=== PATIENT | female | born 1955 | race Caucasian/White ===

== ENCOUNTER 2023-03-29 18:34 | Emergency (ER) | payer MEDICARE ==
[~2023-03-29] VITALS: Ht 162.6 cm; Wt 77.1 kg
[2023-03-29 18:39] VITALS: BP 121/84; PULSE 104; RESP 16
[2023-03-29 19:14] LABS: SARS-CoV-2, RNA, NAAT POSITIVE SARS CoV-2 (NEGATIVE)
[2023-03-29 19:23] LABS: INFLUENZA TYPE A Negative For Type A (NEGATIVE); INFLUENZA TYPE B Negative For Type B (NEGATIVE)
[2023-03-29] MEDS ORDERED: ALBUHFA IH (21:10)
[2023-03-29] MEDS ORDERED: NIRM1TAB9 PO (21:10)
[2023-03-29] MEDS ORDERED: AZIT500T2 PO (21:10)
== END 2023-03-29 22:48 | disposition home or self-care (01) ==
LOC: EDH 18:34
DX: U07.1 COVID-19 (principal); R05.9 Cough, unspecified; E78.00 Pure hypercholesterolemia, unspecified; I10 Essential (primary) hypertension
CPT/HCPCS: 87635; 87804